=== PATIENT | female | born 1990 | race Caucasian/White ===

== ENCOUNTER 2017-10-24 18:48 | Emergency (ER) | payer OTHER ==
[2017-10-24] MEDS: ACETAMINOPHEN 500 MG TAB PO (19:38)
[2017-10-24] MEDS: KETOROLAC 60 MG INJ IM (19:51)
== END 2017-10-24 20:02 | disposition home or self-care (01) ==
LOC: FTE 18:48
DX: R50.9 Fever, unspecified (principal); M54.2 Cervicalgia; R05 Cough; R09.81 Nasal congestion; R19.7 Diarrhea, unspecified
CPT/HCPCS: 96372; 99284-25

== ENCOUNTER 2018-03-29 19:15 | Emergency (ER) | payer OTHER | END 2018-03-29 22:07 | disposition home or self-care (01) | LOC: FTE 19:15 | DX: S00.83XA Contusion of other part of head, initial encounter (principal); S80.12XA Contusion of left lower leg, initial encounter; S80.11XA Contusion of right lower leg, initial encounter; W19.XXXA Unspecified fall, initial encounter; Y92.9 Unspecified place or not applicable | CPT/HCPCS: 73590; 99284-25 ==